=== PATIENT | female | born 1975 | race Caucasian/White ===

== ENCOUNTER 2017-10-31 20:37 | Emergency (ER) | payer OTHER ==
[~2017-10-31] VITALS: Ht 149.9 cm; Wt 79.4 kg
[2017-10-31] MEDS ORDERED: SYNTHROID75 MCG (20:50)
== END 2017-10-31 22:00 | disposition home or self-care (01) ==
LOC: EMR PED 20:37 → ER 20:50
DX: M54.2 Cervicalgia (principal); M54.89 Other dorsalgia; M25.561 Pain in right knee

== ENCOUNTER 2021-08-23 10:00 | Outpatient (CLI) | payer OTHER ==
[~2021-08-23 10:00] MED LIST: SYNTHROID75 MCG
== END 2021-08-23 10:50 | disposition home or self-care (01) ==
LOC: ASH CLINIC 10:00
DX: U07.1 COVID-19 (principal)